=== PATIENT | male | born 1960 | race Caucasian/White ===

== ENCOUNTER 2021-12-20 22:09 | Inpatient (IN) | payer OTHER ==
[2021-12-20] MEDS ORDERED: chlordiazePOXIDE HCL 25 MG CAPSULE PO SCH (23:00)
[2021-12-20] MEDS ORDERED: BENZOCAINE/MENTHOL (CHLORASEPTIC ) LOZENGE MM PRN (23:07)
[2021-12-20] MEDS ORDERED: guaiFENesin 200 MG/10 ML 10 ML UNIT-DOSE CUPS PO PRN (23:07)
[2021-12-20] MEDS ORDERED: MAGNESIUM CITRATE 300 ML BOTTLE PO PRN (23:07)
[2021-12-20] MEDS ORDERED: BISMUTH SUBSALICYLATE 524 MG/30 ML PO PRN (23:07)
[2021-12-20] MEDS ORDERED: MAGNESIUM HYDROX 2400MG/30ML ORAL SUSPENSION 30 ML CUP PO PRN (23:07)
[2021-12-20] MEDS ORDERED: IBUPROFEN 600 MG TABLET (FP) PO PRN (23:07)
[2021-12-20] MEDS ORDERED: LOPERAMIDE HCL 2 MG CAPSULE PO PRN (23:07)
[2021-12-20] MEDS ORDERED: MAG HYDROX/AL HYDROX/SIMETH 30 ML UNIT-DOSE CUP PO PRN (23:07)
[2021-12-20] MEDS ORDERED: ACETAMINOPHEN 325 MG TABLET (FP) PO PRN ×2 (23:07)
[2021-12-20] MEDS ORDERED: DICYCLOMINE HCL 10 MG CAPSULE PO PRN (23:07)
[2021-12-20] MEDS ORDERED: IBUPROFEN 400 MG TABLET (FP) PO PRN (23:07)
[2021-12-20] MEDS ORDERED: MELATONIN 5 MG TABLETS PO PRN (23:07)
[2021-12-20] MEDS ORDERED: chlordiazePOXIDE HCL 25 MG CAPSULE PO PRN (23:19)
[2021-12-20 23:49] VITALS: BMI 32.5
[2021-12-21] MEDS: diazePAM 5 MG TABLET PO SCH ×5 (01:15→22:57)
[2021-12-21] MEDS: ONDANSETRON *ODT* 4 MG TABLET SL PRN ×2 (01:40→10:19)
[2021-12-21] MEDS: hydrOXYzine PAMOATE 25 MG CAPSULE (FP) PO PRN ×3 (05:21→18:30)
[2021-12-21] MEDS: PRENATAL VITAMINS W/ FOLIC ACID TABLET (FP) PO SCH (10:19)
[2021-12-21] MEDS: METHOCARBAMOL 500 MG TABLET PO PRN ×2 (10:19→22:58)
[2021-12-21] MEDS ORDERED: TRIMETHOBENZAMIDE HCL 200MG/2ML INJ IM PRN (10:27)
[2021-12-21 11:14] LABS: HEMATOCRIT 36.4 % (35.4-49); HEMOGLOBIN 12.3 GM/dL (11.7-16.9); MCH 27.7 pg (25.7-33.7); MCHC 33.8 g/dl (32.0-35.9); MEAN PLT VOLUME 9.9 fl (7.5-11.1); PLATELET COUNT 203 10^3/uL (134-434); RBC 4.45 M/mm3 (4.00-5.60); RDW 15.6 % (11.9-15.9); WHITE BLOOD COUNT 7.8 K/mm3 (4.0-10.0)
[2021-12-21] MEDS: HYDROCHLOROTHIAZIDE 12.5 MG CAPSULE (FP) PO SCH (11:19)
[2021-12-21 11:20] LABS: ALBUMIN 3.6 g/dl (3.4-5.0); BLOOD UREA NITROGEN 9.1 mg/dL (7-18); CALCIUM 8.6 mg/dL (8.5-10.1)
[2021-12-21 11:23] LABS: CREATININE 0.9 mg/dL (0.55-1.3)
[2021-12-21 11:25] LABS: BILIRUBIN,TOTAL 1.1 mg/dL (0.2-1)
[2021-12-21] MEDS: THIAMINE HCL 100 MG TABLET (FP) PO SCH (22:56)
[2021-12-22] MEDS ORDERED: chlordiazePOXIDE HCL 25 MG CAPSULE PO SCH (05:00)
[2021-12-22] MEDS: diazePAM 5 MG TABLET PO SCH ×3 (05:54→21:36)
[2021-12-22] MEDS: HYDROCHLOROTHIAZIDE 12.5 MG CAPSULE (FP) PO SCH (10:36)
[2021-12-22] MEDS: hydrOXYzine PAMOATE 25 MG CAPSULE (FP) PO PRN ×2 (10:37→21:36)
[2021-12-22] MEDS: METHOCARBAMOL 500 MG TABLET PO PRN ×2 (10:37→18:09)
[2021-12-22] MEDS: PRENATAL VITAMINS W/ FOLIC ACID TABLET (FP) PO SCH (10:37)
[2021-12-22 10:39] LABS: CALCIUM 8.6 mg/dL (8.5-10.1)
[2021-12-22 10:40] LABS: BLOOD UREA NITROGEN 9.5 mg/dL (7-18)
[2021-12-22] MEDS: diazePAM 5 MG TABLET PO PRN ×2 (10:40→18:09)
[2021-12-22 10:43] LABS: CREATININE 0.9 mg/dL (0.55-1.3)
[2021-12-22] MEDS: amLODIPine BESYLATE 10 MG TABLET (FP) PO SCH (16:53)
[2021-12-22] MEDS: TAMSULOSIN HCL 0.4 MG CAP PO SCH (16:53)
[2021-12-22] MEDS: FAMOTIDINE 20 MG TABLET PO SCH (16:53)
[2021-12-22] MEDS: FOLIC ACID 1 MG TABLET (FP) PO SCH (16:54)
[2021-12-22] MEDS: THIAMINE HCL 100 MG TABLET (FP) PO SCH (21:36)
[2021-12-22] MEDS: MELATONIN 5 MG TABLETS PO PRN (23:47)
[2021-12-23] MEDS ORDERED: chlordiazePOXIDE HCL 10 MG CAPSULE PO PRN
[2021-12-23] MEDS ORDERED: chlordiazePOXIDE HCL 10 MG CAPSULE PO SCH (05:00)
[2021-12-23] MEDS: diazePAM 5 MG TABLET PO SCH ×2 (05:20→18:37)
[2021-12-23] MEDS ORDERED: diazePAM 5 MG TABLET PO SCH (06:00)
[2021-12-23] MEDS: HYDROCHLOROTHIAZIDE 12.5 MG CAPSULE (FP) PO SCH (10:13)
[2021-12-23] MEDS: TAMSULOSIN HCL 0.4 MG CAP PO SCH (10:13)
[2021-12-23] MEDS: amLODIPine BESYLATE 10 MG TABLET (FP) PO SCH (10:13)
[2021-12-23] MEDS: FAMOTIDINE 20 MG TABLET PO SCH (10:13)
[2021-12-23] MEDS: PRENATAL VITAMINS W/ FOLIC ACID TABLET (FP) PO SCH (10:14)
[2021-12-23] MEDS: diazePAM 5 MG TABLET PO PRN ×3 (10:14→22:20)
[2021-12-23] MEDS: FOLIC ACID 1 MG TABLET (FP) PO SCH (11:09)
[2021-12-23] MEDS: hydrOXYzine PAMOATE 25 MG CAPSULE (FP) PO PRN ×3 (13:47→22:19)
[2021-12-23] MEDS: METHOCARBAMOL 500 MG TABLET PO PRN (18:38)
[2021-12-23] MEDS: MELATONIN 5 MG TABLETS PO PRN (22:19)
[2021-12-23] MEDS: THIAMINE HCL 100 MG TABLET (FP) PO SCH (22:19)
[2021-12-24] MEDS ORDERED: chlordiazePOXIDE HCL 10 MG CAPSULE PO SCH (05:00)
[2021-12-24] MEDS ORDERED: diazePAM 5 MG TABLET PO ONE ×2 (06:00)
[2021-12-24] MEDS: HYDROCHLOROTHIAZIDE 12.5 MG CAPSULE (FP) PO SCH (10:33)
[2021-12-24] MEDS: FOLIC ACID 1 MG TABLET (FP) PO SCH (10:33)
[2021-12-24] MEDS: FAMOTIDINE 20 MG TABLET PO SCH (10:34)
[2021-12-24] MEDS: hydrOXYzine PAMOATE 25 MG CAPSULE (FP) PO PRN ×2 (10:34→22:19)
[2021-12-24] MEDS: PRENATAL VITAMINS W/ FOLIC ACID TABLET (FP) PO SCH (10:34)
[2021-12-24] MEDS: amLODIPine BESYLATE 10 MG TABLET (FP) PO SCH (10:34)
[2021-12-24] MEDS: TAMSULOSIN HCL 0.4 MG CAP PO SCH (10:34)
[2021-12-24] MEDS ORDERED: NYSTATIN 500,000 UNITS/5 ML SUSPENSION PO SCH (12:17)
[2021-12-24] MEDS: CLOTRIMAZOLE 10 MG TROCHE PO SCH ×3 (14:36→22:22)
[2021-12-24] MEDS: BACITRACIN 0.9 GM PACKET TP SCH ×2 (20:14→22:22)
[2021-12-24] MEDS: MELATONIN 5 MG TABLETS PO PRN (22:19)
[2021-12-24] MEDS: THIAMINE HCL 100 MG TABLET (FP) PO SCH (22:22)
[2021-12-25] MEDS: hydrOXYzine PAMOATE 25 MG CAPSULE (FP) PO PRN ×3 (02:36→22:13)
[2021-12-25] MEDS: METHOCARBAMOL 500 MG TABLET PO PRN ×2 (02:37→11:05)
[2021-12-25] MEDS ORDERED: chlordiazePOXIDE HCL 10 MG CAPSULE PO ONE (05:00)
[2021-12-25] MEDS: CLOTRIMAZOLE 10 MG TROCHE PO SCH ×5 (05:56→23:33)
[2021-12-25] MEDS ORDERED: diazePAM 5 MG TABLET PO ONE (06:00)
[2021-12-25] MEDS: amLODIPine BESYLATE 10 MG TABLET (FP) PO SCH (11:05)
[2021-12-25] MEDS: FOLIC ACID 1 MG TABLET (FP) PO SCH (11:05)
[2021-12-25] MEDS: FAMOTIDINE 20 MG TABLET PO SCH (11:05)
[2021-12-25] MEDS: TAMSULOSIN HCL 0.4 MG CAP PO SCH (11:05)
[2021-12-25] MEDS: PRENATAL VITAMINS W/ FOLIC ACID TABLET (FP) PO SCH (11:05)
[2021-12-25] MEDS: BACITRACIN 0.9 GM PACKET TP SCH ×2 (11:06→23:29)
[2021-12-25] MEDS: HYDROCHLOROTHIAZIDE 12.5 MG CAPSULE (FP) PO SCH (11:07)
[2021-12-25] MEDS: THIAMINE HCL 100 MG TABLET (FP) PO SCH (22:13)
[2021-12-25] MEDS: MELATONIN 5 MG TABLETS PO PRN (22:13)
[2021-12-26] MEDS: CLOTRIMAZOLE 10 MG TROCHE PO SCH ×5 (05:39→21:34)
[2021-12-26] MEDS: PRENATAL VITAMINS W/ FOLIC ACID TABLET (FP) PO SCH (10:23)
[2021-12-26] MEDS: FAMOTIDINE 20 MG TABLET PO SCH (10:23)
[2021-12-26] MEDS: HYDROCHLOROTHIAZIDE 12.5 MG CAPSULE (FP) PO SCH (10:23)
[2021-12-26] MEDS: TAMSULOSIN HCL 0.4 MG CAP PO SCH (10:24)
[2021-12-26] MEDS: FOLIC ACID 1 MG TABLET (FP) PO SCH (10:24)
[2021-12-26] MEDS: BACITRACIN 0.9 GM PACKET TP SCH ×2 (10:24→21:34)
[2021-12-26] MEDS: amLODIPine BESYLATE 10 MG TABLET (FP) PO SCH (12:05)
[2021-12-26] MEDS: THIAMINE HCL 100 MG TABLET (FP) PO SCH (21:34)
[2021-12-27] MEDS: CLOTRIMAZOLE 10 MG TROCHE PO SCH ×5 (06:42→21:30)
[2021-12-27] MEDS: TAMSULOSIN HCL 0.4 MG CAP PO SCH (09:34)
[2021-12-27] MEDS: PRENATAL VITAMINS W/ FOLIC ACID TABLET (FP) PO SCH (09:35)
[2021-12-27] MEDS: BACITRACIN 0.9 GM PACKET TP SCH ×2 (09:35→21:30)
[2021-12-27] MEDS: FAMOTIDINE 20 MG TABLET PO SCH (09:35)
[2021-12-27] MEDS: amLODIPine BESYLATE 10 MG TABLET (FP) PO SCH (09:35)
[2021-12-27] MEDS: FOLIC ACID 1 MG TABLET (FP) PO SCH (09:35)
[2021-12-27] MEDS: HYDROCHLOROTHIAZIDE 12.5 MG CAPSULE (FP) PO SCH (09:35)
[2021-12-27] MEDS: THIAMINE HCL 100 MG TABLET (FP) PO SCH (21:30)
[2021-12-28] MEDS: CLOTRIMAZOLE 10 MG TROCHE PO SCH ×5 (06:23→21:19)
[2021-12-28] MEDS: HYDROCHLOROTHIAZIDE 12.5 MG CAPSULE (FP) PO SCH (10:56)
[2021-12-28] MEDS: PRENATAL VITAMINS W/ FOLIC ACID TABLET (FP) PO SCH (10:56)
[2021-12-28] MEDS: FAMOTIDINE 20 MG TABLET PO SCH (10:56)
[2021-12-28] MEDS: amLODIPine BESYLATE 10 MG TABLET (FP) PO SCH (10:56)
[2021-12-28] MEDS: FOLIC ACID 1 MG TABLET (FP) PO SCH (10:57)
[2021-12-28] MEDS: BACITRACIN 0.9 GM PACKET TP SCH ×2 (10:58→21:19)
[2021-12-28] MEDS: TAMSULOSIN HCL 0.4 MG CAP PO SCH (10:58)
[2021-12-28] MEDS: THIAMINE HCL 100 MG TABLET (FP) PO SCH (21:20)
[2021-12-28] MEDS: OLANZapine 10 MG TABLET PO SCH (21:20)
[2021-12-29] MEDS: CLOTRIMAZOLE 10 MG TROCHE PO SCH ×5 (07:53→21:26)
[2021-12-29] MEDS: amLODIPine BESYLATE 10 MG TABLET (FP) PO SCH (10:20)
[2021-12-29] MEDS: BACITRACIN 0.9 GM PACKET TP SCH ×2 (10:20→21:26)
[2021-12-29] MEDS: PRENATAL VITAMINS W/ FOLIC ACID TABLET (FP) PO SCH (10:20)
[2021-12-29] MEDS: FAMOTIDINE 20 MG TABLET PO SCH (10:20)
[2021-12-29] MEDS: OLANZapine 10 MG TABLET PO SCH ×2 (10:20→21:26)
[2021-12-29] MEDS: FOLIC ACID 1 MG TABLET (FP) PO SCH (10:20)
[2021-12-29] MEDS: HYDROCHLOROTHIAZIDE 12.5 MG CAPSULE (FP) PO SCH (10:20)
[2021-12-29] MEDS: TAMSULOSIN HCL 0.4 MG CAP PO SCH (10:20)
[2021-12-29] MEDS: THIAMINE HCL 100 MG TABLET (FP) PO SCH (21:26)
[2021-12-30] MEDS: CLOTRIMAZOLE 10 MG TROCHE PO SCH ×5 (06:31→21:44)
[2021-12-30] MEDS: amLODIPine BESYLATE 10 MG TABLET (FP) PO SCH (10:30)
[2021-12-30] MEDS: FOLIC ACID 1 MG TABLET (FP) PO SCH (10:30)
[2021-12-30] MEDS: OLANZapine 10 MG TABLET PO SCH ×2 (10:30→21:43)
[2021-12-30] MEDS: BACITRACIN 0.9 GM PACKET TP SCH ×2 (10:30→21:43)
[2021-12-30] MEDS: HYDROCHLOROTHIAZIDE 12.5 MG CAPSULE (FP) PO SCH (10:30)
[2021-12-30] MEDS: TAMSULOSIN HCL 0.4 MG CAP PO SCH (10:30)
[2021-12-30] MEDS: PRENATAL VITAMINS W/ FOLIC ACID TABLET (FP) PO SCH (10:30)
[2021-12-30] MEDS: FAMOTIDINE 20 MG TABLET PO SCH (10:30)
[2021-12-30] MEDS: THIAMINE HCL 100 MG TABLET (FP) PO SCH (21:43)
[2021-12-31] MEDS: CLOTRIMAZOLE 10 MG TROCHE PO SCH ×5 (07:36→21:32)
[2021-12-31] MEDS: BACITRACIN 0.9 GM PACKET TP SCH ×2 (11:06→21:32)
[2021-12-31] MEDS: TAMSULOSIN HCL 0.4 MG CAP PO SCH (11:06)
[2021-12-31] MEDS: FAMOTIDINE 20 MG TABLET PO SCH (11:07)
[2021-12-31] MEDS: amLODIPine BESYLATE 10 MG TABLET (FP) PO SCH (11:07)
[2021-12-31] MEDS: FOLIC ACID 1 MG TABLET (FP) PO SCH (11:07)
[2021-12-31] MEDS: HYDROCHLOROTHIAZIDE 12.5 MG CAPSULE (FP) PO SCH (11:07)
[2021-12-31] MEDS: PRENATAL VITAMINS W/ FOLIC ACID TABLET (FP) PO SCH (11:08)
[2021-12-31] MEDS: OLANZapine 10 MG TABLET PO SCH ×2 (11:08→21:32)
[2021-12-31] MEDS: THIAMINE HCL 100 MG TABLET (FP) PO SCH (21:32)
[2022-01-01] MEDS: MELATONIN 5 MG TABLETS PO PRN ×2 (02:30→21:26)
[2022-01-01] MEDS: CLOTRIMAZOLE 10 MG TROCHE PO SCH ×5 (05:54→21:27)
[2022-01-01] MEDS: TAMSULOSIN HCL 0.4 MG CAP PO SCH (09:24)
[2022-01-01] MEDS: HYDROCHLOROTHIAZIDE 12.5 MG CAPSULE (FP) PO SCH (09:24)
[2022-01-01] MEDS: FAMOTIDINE 20 MG TABLET PO SCH (09:24)
[2022-01-01] MEDS: OLANZapine 10 MG TABLET PO SCH ×2 (09:26→21:26)
[2022-01-01] MEDS: PRENATAL VITAMINS W/ FOLIC ACID TABLET (FP) PO SCH (09:26)
[2022-01-01] MEDS: FOLIC ACID 1 MG TABLET (FP) PO SCH (09:27)
[2022-01-01] MEDS: amLODIPine BESYLATE 10 MG TABLET (FP) PO SCH (09:28)
[2022-01-01] MEDS: BACITRACIN 0.9 GM PACKET TP SCH ×2 (09:29→21:27)
[2022-01-01] MEDS: THIAMINE HCL 100 MG TABLET (FP) PO SCH (21:27)
[2022-01-02] MEDS: CLOTRIMAZOLE 10 MG TROCHE PO SCH ×5 (06:53→21:20)
[2022-01-02] MEDS: OLANZapine 10 MG TABLET PO SCH ×2 (10:50→21:19)
[2022-01-02] MEDS: amLODIPine BESYLATE 10 MG TABLET (FP) PO SCH (10:50)
[2022-01-02] MEDS: FAMOTIDINE 20 MG TABLET PO SCH (10:50)
[2022-01-02] MEDS: FOLIC ACID 1 MG TABLET (FP) PO SCH (10:50)
[2022-01-02] MEDS: TAMSULOSIN HCL 0.4 MG CAP PO SCH (10:50)
[2022-01-02] MEDS: PRENATAL VITAMINS W/ FOLIC ACID TABLET (FP) PO SCH (10:50)
[2022-01-02] MEDS: BACITRACIN 0.9 GM PACKET TP SCH ×2 (10:50→21:20)
[2022-01-02] MEDS: HYDROCHLOROTHIAZIDE 12.5 MG CAPSULE (FP) PO SCH (15:14)
[2022-01-02] MEDS: MELATONIN 5 MG TABLETS PO PRN (21:19)
[2022-01-02] MEDS: THIAMINE HCL 100 MG TABLET (FP) PO SCH (21:23)
[2022-01-03] MEDS: CLOTRIMAZOLE 10 MG TROCHE PO SCH ×5 (06:20→22:02)
[2022-01-03] MEDS: FAMOTIDINE 20 MG TABLET PO SCH (10:17)
[2022-01-03] MEDS: HYDROCHLOROTHIAZIDE 12.5 MG CAPSULE (FP) PO SCH (10:17)
[2022-01-03] MEDS: amLODIPine BESYLATE 10 MG TABLET (FP) PO SCH (10:17)
[2022-01-03] MEDS: OLANZapine 10 MG TABLET PO SCH ×2 (10:17→22:02)
[2022-01-03] MEDS: TAMSULOSIN HCL 0.4 MG CAP PO SCH (10:18)
[2022-01-03] MEDS: FOLIC ACID 1 MG TABLET (FP) PO SCH (10:18)
[2022-01-03] MEDS: BACITRACIN 0.9 GM PACKET TP SCH ×2 (10:18→22:02)
[2022-01-03] MEDS: PRENATAL VITAMINS W/ FOLIC ACID TABLET (FP) PO SCH (10:18)
[2022-01-03] MEDS: THIAMINE HCL 100 MG TABLET (FP) PO SCH (22:02)
[2022-01-04] MEDS: CLOTRIMAZOLE 10 MG TROCHE PO SCH ×5 (06:36→21:46)
[2022-01-04] MEDS: FAMOTIDINE 20 MG TABLET PO SCH (09:32)
[2022-01-04] MEDS: TAMSULOSIN HCL 0.4 MG CAP PO SCH (09:32)
[2022-01-04] MEDS: FOLIC ACID 1 MG TABLET (FP) PO SCH (09:32)
[2022-01-04] MEDS: HYDROCHLOROTHIAZIDE 12.5 MG CAPSULE (FP) PO SCH (09:32)
[2022-01-04] MEDS: OLANZapine 10 MG TABLET PO SCH ×3 (09:32→23:43)
[2022-01-04] MEDS: amLODIPine BESYLATE 10 MG TABLET (FP) PO SCH (09:32)
[2022-01-04] MEDS: BACITRACIN 0.9 GM PACKET TP SCH ×2 (09:35→21:45)
[2022-01-04] MEDS: PRENATAL VITAMINS W/ FOLIC ACID TABLET (FP) PO SCH (09:36)
[2022-01-04] MEDS: THIAMINE HCL 100 MG TABLET (FP) PO SCH (21:46)
[2022-01-04] MEDS: MELATONIN 5 MG TABLETS PO PRN (23:42)
[2022-01-05] MEDS: CLOTRIMAZOLE 10 MG TROCHE PO SCH ×5 (06:46→22:59)
[2022-01-05] MEDS: PRENATAL VITAMINS W/ FOLIC ACID TABLET (FP) PO SCH (11:00)
[2022-01-05] MEDS: FOLIC ACID 1 MG TABLET (FP) PO SCH (11:00)
[2022-01-05] MEDS: BACITRACIN 0.9 GM PACKET TP SCH ×2 (11:00→22:59)
[2022-01-05] MEDS: FUROSEMIDE 20 MG TABLET (FP) PO SCH (11:00)
[2022-01-05] MEDS: FAMOTIDINE 20 MG TABLET PO SCH (11:00)
[2022-01-05] MEDS: LISINOPRIL 10 MG TABLET PO SCH (12:22)
[2022-01-05] MEDS: OLANZapine 10 MG TABLET PO SCH ×2 (12:22→23:00)
[2022-01-05] MEDS: hydrALAZINE HCL 25 MG TABLET (FP) PO SCH ×2 (15:17→22:59)
[2022-01-05] MEDS ORDERED: hydrALAZINE HCL 25 MG TABLET (FP) PO SCH (15:29)
[2022-01-05] MEDS: GABAPENTIN 100 MG CAPSULE PO SCH (22:59)
[2022-01-05] MEDS: THIAMINE HCL 100 MG TABLET (FP) PO SCH (22:59)
[2022-01-06] MEDS: hydrALAZINE HCL 25 MG TABLET (FP) PO SCH ×4 (01:33→21:41)
[2022-01-06] MEDS: CLOTRIMAZOLE 10 MG TROCHE PO SCH ×5 (06:23→21:41)
[2022-01-06] MEDS: BACITRACIN 0.9 GM PACKET TP SCH ×2 (11:17→21:41)
[2022-01-06] MEDS: OLANZapine 10 MG TABLET PO SCH ×2 (11:17→21:42)
[2022-01-06] MEDS: FAMOTIDINE 20 MG TABLET PO SCH (11:17)
[2022-01-06] MEDS: TAMSULOSIN HCL 0.4 MG CAP PO SCH (11:17)
[2022-01-06] MEDS: FOLIC ACID 1 MG TABLET (FP) PO SCH (11:17)
[2022-01-06] MEDS: PRENATAL VITAMINS W/ FOLIC ACID TABLET (FP) PO SCH (11:17)
[2022-01-06] MEDS: LISINOPRIL 10 MG TABLET PO SCH (11:17)
[2022-01-06] MEDS: FUROSEMIDE 20 MG TABLET (FP) PO SCH (11:17)
[2022-01-06] MEDS: GABAPENTIN 100 MG CAPSULE PO SCH (21:42)
[2022-01-06] MEDS: THIAMINE HCL 100 MG TABLET (FP) PO SCH (21:42)
[2022-01-07] MEDS: hydrALAZINE HCL 25 MG TABLET (FP) PO SCH ×3 (06:44→21:50)
[2022-01-07] MEDS: CLOTRIMAZOLE 10 MG TROCHE PO SCH ×5 (06:44→21:51)
[2022-01-07] MEDS: FOLIC ACID 1 MG TABLET (FP) PO SCH (10:25)
[2022-01-07] MEDS: OLANZapine 10 MG TABLET PO SCH ×2 (10:25→21:50)
[2022-01-07] MEDS: LISINOPRIL 10 MG TABLET PO SCH (10:25)
[2022-01-07] MEDS: FAMOTIDINE 20 MG TABLET PO SCH (10:25)
[2022-01-07] MEDS: PRENATAL VITAMINS W/ FOLIC ACID TABLET (FP) PO SCH (10:25)
[2022-01-07] MEDS: TAMSULOSIN HCL 0.4 MG CAP PO SCH (10:25)
[2022-01-07] MEDS: FUROSEMIDE 20 MG TABLET (FP) PO SCH (10:25)
[2022-01-07] MEDS: BACITRACIN 0.9 GM PACKET TP SCH ×2 (10:25→21:51)
[2022-01-07] MEDS: THIAMINE HCL 100 MG TABLET (FP) PO SCH (21:50)
[2022-01-07] MEDS: GABAPENTIN 100 MG CAPSULE PO SCH (21:50)
[2022-01-08] MEDS: hydrALAZINE HCL 25 MG TABLET (FP) PO SCH ×3 (07:33→22:06)
[2022-01-08] MEDS: CLOTRIMAZOLE 10 MG TROCHE PO SCH ×5 (07:33→22:05)
[2022-01-08] MEDS: OLANZapine 10 MG TABLET PO SCH ×2 (09:15→22:05)
[2022-01-08] MEDS: LISINOPRIL 10 MG TABLET PO SCH (09:15)
[2022-01-08] MEDS: FOLIC ACID 1 MG TABLET (FP) PO SCH (09:15)
[2022-01-08] MEDS: TAMSULOSIN HCL 0.4 MG CAP PO SCH (09:15)
[2022-01-08] MEDS: FUROSEMIDE 20 MG TABLET (FP) PO SCH (09:16)
[2022-01-08] MEDS: PRENATAL VITAMINS W/ FOLIC ACID TABLET (FP) PO SCH (09:16)
[2022-01-08] MEDS: BACITRACIN 0.9 GM PACKET TP SCH ×2 (09:17→22:05)
[2022-01-08] MEDS: FAMOTIDINE 20 MG TABLET PO SCH (09:17)
[2022-01-08] MEDS: GABAPENTIN 100 MG CAPSULE PO SCH (22:04)
[2022-01-08] MEDS: THIAMINE HCL 100 MG TABLET (FP) PO SCH (22:04)
[2022-01-09] MEDS: hydrALAZINE HCL 25 MG TABLET (FP) PO SCH ×3 (07:30→21:46)
[2022-01-09] MEDS: CLOTRIMAZOLE 10 MG TROCHE PO SCH ×5 (07:30→21:45)
[2022-01-09] MEDS: TAMSULOSIN HCL 0.4 MG CAP PO SCH (09:29)
[2022-01-09] MEDS: FAMOTIDINE 20 MG TABLET PO SCH (09:29)
[2022-01-09] MEDS: OLANZapine 10 MG TABLET PO SCH ×2 (09:29→21:43)
[2022-01-09] MEDS: PRENATAL VITAMINS W/ FOLIC ACID TABLET (FP) PO SCH (09:29)
[2022-01-09] MEDS: BACITRACIN 0.9 GM PACKET TP SCH ×2 (09:32→22:15)
[2022-01-09] MEDS: FUROSEMIDE 20 MG TABLET (FP) PO SCH (09:32)
[2022-01-09] MEDS: FOLIC ACID 1 MG TABLET (FP) PO SCH (09:32)
[2022-01-09] MEDS: LISINOPRIL 10 MG TABLET PO SCH (09:32)
[2022-01-09] MEDS: MELATONIN 5 MG TABLETS PO PRN (21:43)
[2022-01-09] MEDS: THIAMINE HCL 100 MG TABLET (FP) PO SCH (21:46)
[2022-01-09] MEDS: GABAPENTIN 100 MG CAPSULE PO SCH (21:46)
[2022-01-10] MEDS: CLOTRIMAZOLE 10 MG TROCHE PO SCH ×5 (06:43→21:36)
[2022-01-10] MEDS: hydrALAZINE HCL 25 MG TABLET (FP) PO SCH ×3 (06:47→21:39)
[2022-01-10] MEDS: OLANZapine 10 MG TABLET PO SCH ×2 (09:30→21:37)
[2022-01-10] MEDS: LISINOPRIL 10 MG TABLET PO SCH (10:30)
[2022-01-10] MEDS: FUROSEMIDE 20 MG TABLET (FP) PO SCH (10:30)
[2022-01-10] MEDS: FAMOTIDINE 20 MG TABLET PO SCH (10:30)
[2022-01-10] MEDS: FOLIC ACID 1 MG TABLET (FP) PO SCH (10:30)
[2022-01-10] MEDS: BACITRACIN 0.9 GM PACKET TP SCH ×2 (10:30→21:36)
[2022-01-10] MEDS: TAMSULOSIN HCL 0.4 MG CAP PO SCH (10:30)
[2022-01-10] MEDS: PRENATAL VITAMINS W/ FOLIC ACID TABLET (FP) PO SCH (10:30)
[2022-01-10] MEDS: THIAMINE HCL 100 MG TABLET (FP) PO SCH (21:37)
[2022-01-10] MEDS: GABAPENTIN 100 MG CAPSULE PO SCH (21:37)
[2022-01-11] MEDS: CLOTRIMAZOLE 10 MG TROCHE PO SCH ×5 (07:34→21:29)
[2022-01-11] MEDS: hydrALAZINE HCL 25 MG TABLET (FP) PO SCH ×3 (07:37→21:28)
[2022-01-11] MEDS: OLANZapine 10 MG TABLET PO SCH ×2 (10:00→21:28)
[2022-01-11] MEDS: BACITRACIN 0.9 GM PACKET TP SCH ×2 (10:01→21:29)
[2022-01-11] MEDS: TAMSULOSIN HCL 0.4 MG CAP PO SCH (10:01)
[2022-01-11] MEDS: FOLIC ACID 1 MG TABLET (FP) PO SCH (10:02)
[2022-01-11] MEDS: LISINOPRIL 10 MG TABLET PO SCH (10:02)
[2022-01-11] MEDS: FAMOTIDINE 20 MG TABLET PO SCH (10:02)
[2022-01-11] MEDS: PRENATAL VITAMINS W/ FOLIC ACID TABLET (FP) PO SCH (10:02)
[2022-01-11] MEDS: FUROSEMIDE 20 MG TABLET (FP) PO SCH (10:06)
[2022-01-11] MEDS: MELATONIN 5 MG TABLETS PO PRN (21:28)
[2022-01-11] MEDS: GABAPENTIN 100 MG CAPSULE PO SCH (21:28)
[2022-01-11] MEDS: THIAMINE HCL 100 MG TABLET (FP) PO SCH (21:29)
[2022-01-12] MEDS: hydrALAZINE HCL 25 MG TABLET (FP) PO SCH ×3 (07:38→23:17)
[2022-01-12] MEDS: CLOTRIMAZOLE 10 MG TROCHE PO SCH ×5 (07:38→23:17)
[2022-01-12] MEDS: LISINOPRIL 10 MG TABLET PO SCH (09:21)
[2022-01-12] MEDS: OLANZapine 10 MG TABLET PO SCH ×2 (09:21→23:17)
[2022-01-12] MEDS: BACITRACIN 0.9 GM PACKET TP SCH ×2 (09:21→23:17)
[2022-01-12] MEDS: FAMOTIDINE 20 MG TABLET PO SCH (09:21)
[2022-01-12] MEDS: FOLIC ACID 1 MG TABLET (FP) PO SCH (09:21)
[2022-01-12] MEDS: PRENATAL VITAMINS W/ FOLIC ACID TABLET (FP) PO SCH (09:21)
[2022-01-12] MEDS: TAMSULOSIN HCL 0.4 MG CAP PO SCH (09:21)
[2022-01-12] MEDS: FUROSEMIDE 20 MG TABLET (FP) PO SCH (09:22)
[2022-01-12] MEDS: THIAMINE HCL 100 MG TABLET (FP) PO SCH (23:17)
[2022-01-12] MEDS: GABAPENTIN 100 MG CAPSULE PO SCH (23:17)
[2022-01-13] MEDS: CLOTRIMAZOLE 10 MG TROCHE PO SCH ×2 (07:41→10:40)
[2022-01-13] MEDS: hydrALAZINE HCL 25 MG TABLET (FP) PO SCH ×3 (07:41→21:59)
[2022-01-13] MEDS: TAMSULOSIN HCL 0.4 MG CAP PO SCH (10:37)
[2022-01-13] MEDS: FOLIC ACID 1 MG TABLET (FP) PO SCH (10:37)
[2022-01-13] MEDS: OLANZapine 10 MG TABLET PO SCH ×2 (10:37→21:59)
[2022-01-13] MEDS: LISINOPRIL 10 MG TABLET PO SCH (10:37)
[2022-01-13] MEDS: FUROSEMIDE 20 MG TABLET (FP) PO SCH (10:38)
[2022-01-13] MEDS: PRENATAL VITAMINS W/ FOLIC ACID TABLET (FP) PO SCH (10:38)
[2022-01-13] MEDS: FAMOTIDINE 20 MG TABLET PO SCH (10:38)
[2022-01-13] MEDS: BACITRACIN 0.9 GM PACKET TP SCH ×2 (10:41→21:59)
[2022-01-13] MEDS: GABAPENTIN 100 MG CAPSULE PO SCH (21:59)
[2022-01-13] MEDS: THIAMINE HCL 100 MG TABLET (FP) PO SCH (21:59)
[2022-01-14] MEDS: hydrALAZINE HCL 25 MG TABLET (FP) PO SCH ×3 (07:32→21:35)
[2022-01-14] MEDS: FOLIC ACID 1 MG TABLET (FP) PO SCH (09:05)
[2022-01-14] MEDS: TAMSULOSIN HCL 0.4 MG CAP PO SCH (09:05)
[2022-01-14] MEDS: OLANZapine 10 MG TABLET PO SCH ×2 (09:06→21:35)
[2022-01-14] MEDS: FAMOTIDINE 20 MG TABLET PO SCH (09:06)
[2022-01-14] MEDS: LISINOPRIL 10 MG TABLET PO SCH (09:06)
[2022-01-14] MEDS: PRENATAL VITAMINS W/ FOLIC ACID TABLET (FP) PO SCH (09:06)
[2022-01-14] MEDS: FUROSEMIDE 20 MG TABLET (FP) PO SCH (09:12)
[2022-01-14] MEDS: BACITRACIN 0.9 GM PACKET TP SCH ×2 (09:13→21:35)
[2022-01-14] MEDS: GABAPENTIN 100 MG CAPSULE PO SCH (21:35)
[2022-01-14] MEDS: THIAMINE HCL 100 MG TABLET (FP) PO SCH (21:35)
[2022-01-15] MEDS: hydrALAZINE HCL 25 MG TABLET (FP) PO SCH ×3 (06:00→23:11)
[2022-01-15] MEDS: PRENATAL VITAMINS W/ FOLIC ACID TABLET (FP) PO SCH (10:13)
[2022-01-15] MEDS: BACITRACIN 0.9 GM PACKET TP SCH ×2 (10:13→23:11)
[2022-01-15] MEDS: TAMSULOSIN HCL 0.4 MG CAP PO SCH (10:13)
[2022-01-15] MEDS: LISINOPRIL 10 MG TABLET PO SCH (10:13)
[2022-01-15] MEDS: OLANZapine 10 MG TABLET PO SCH ×2 (10:14→21:36)
[2022-01-15] MEDS: FOLIC ACID 1 MG TABLET (FP) PO SCH (10:14)
[2022-01-15] MEDS: FUROSEMIDE 20 MG TABLET (FP) PO SCH (10:14)
[2022-01-15] MEDS: FAMOTIDINE 20 MG TABLET PO SCH (10:14)
[2022-01-15] MEDS: GABAPENTIN 100 MG CAPSULE PO SCH (21:36)
[2022-01-15] MEDS: MELATONIN 5 MG TABLETS PO PRN (21:36)
[2022-01-15] MEDS: THIAMINE HCL 100 MG TABLET (FP) PO SCH (23:11)
[2022-01-16] MEDS: hydrALAZINE HCL 25 MG TABLET (FP) PO SCH ×3 (06:26→22:12)
[2022-01-16] MEDS: TAMSULOSIN HCL 0.4 MG CAP PO SCH (09:00)
[2022-01-16] MEDS: OLANZapine 10 MG TABLET PO SCH ×2 (10:27→22:15)
[2022-01-16] MEDS: FUROSEMIDE 20 MG TABLET (FP) PO SCH (10:27)
[2022-01-16] MEDS: FOLIC ACID 1 MG TABLET (FP) PO SCH (10:28)
[2022-01-16] MEDS: BACITRACIN 0.9 GM PACKET TP SCH ×2 (10:28→22:12)
[2022-01-16] MEDS: FAMOTIDINE 20 MG TABLET PO SCH (10:28)
[2022-01-16] MEDS: LISINOPRIL 10 MG TABLET PO SCH (10:28)
[2022-01-16] MEDS: PRENATAL VITAMINS W/ FOLIC ACID TABLET (FP) PO SCH (10:29)
[2022-01-16] MEDS: THIAMINE HCL 100 MG TABLET (FP) PO SCH (22:15)
[2022-01-16] MEDS: GABAPENTIN 100 MG CAPSULE PO SCH (22:15)
[2022-01-16 23:17] VITALS: RESP 20; TEMP 97.2
[2022-01-17] MEDS: hydrALAZINE HCL 25 MG TABLET (FP) PO SCH (07:19)
[2022-01-17] MEDS: LISINOPRIL 10 MG TABLET PO SCH (09:28)
[2022-01-17] MEDS: FOLIC ACID 1 MG TABLET (FP) PO SCH (09:29)
[2022-01-17] MEDS: FAMOTIDINE 20 MG TABLET PO SCH (09:29)
[2022-01-17] MEDS: TAMSULOSIN HCL 0.4 MG CAP PO SCH (09:29)
[2022-01-17] MEDS: FUROSEMIDE 20 MG TABLET (FP) PO SCH (09:30)
[2022-01-17] MEDS: BACITRACIN 0.9 GM PACKET TP SCH (09:31)
[2022-01-17] MEDS: PRENATAL VITAMINS W/ FOLIC ACID TABLET (FP) PO SCH (09:31)
[2022-01-17] MEDS: OLANZapine 10 MG TABLET PO SCH (09:31)
[2022-01-17 09:34] VITALS: BP 139/79; PULSE 108
== END 2022-01-17 11:06 | disposition home or self-care (01) | DRG 895 ==
LOC: YASAS 22:09 → Y6N 23:22 → Y3E 12-26 13:44
PROVIDERS: ADMIT Allergy & Immunology; ATTEND Psychiatry & Neurology Pain Medicine
PROC: HZ2ZZZZ Detoxification Services for Substance Abuse Treatment (ICD-10-PCS; 2021-12-20)
PROC: HZ42ZZZ Group Counseling for Substance Abuse Treatment, Cognitive-Behavioral (ICD-10-PCS; principal; 2021-12-26)
DX: F10.20 Alcohol dependence, uncomplicated (principal); F20.0 Paranoid schizophrenia; F10.220 Alcohol dependence with intoxication, uncomplicated; F10.280 Alcohol dependence with alcohol-induced anxiety disorder; F10.282 Alcohol dependence with alcohol-induced sleep disorder; F10.24 Alcohol dependence with alcohol-induced mood disorder; F41.1 Generalized anxiety disorder; F81.9 Developmental disorder of scholastic skills, unspecified; F81.89 Other developmental disorders of scholastic skills; I10 Essential (primary) hypertension; N40.0 Benign prostatic hyperplasia without lower urinary tract symptoms
CPT/HCPCS: 36415; 80048; 80053; 85027; 86780; 87811; 99281-25; C9803-CS; Q0162; U0003; U0005